=== PATIENT | female | born 1935 | race Caucasian/White ===

== ENCOUNTER 2021-10-10 12:31 | Emergency (ER) | payer MEDICARE, MEDICAID ==
[~2021-10-10] VITALS: Ht 152.4 cm; Wt 67.1 kg
[2021-10-10 12:34] VITALS: BP 124/81
--- NOTE | 2021-10-10 12:41 | NUR ---
PT AMBULATED TO BED 09.
--- NOTE | 2021-10-10 12:59 | NUR ---
PATIENT TAKEN TO CT VIA [facility]
--- NOTE | 2021-10-10 13:20 | NUR ---
PATIENT RETURNED FROM CT
--- NOTE | 2021-10-10 13:29 | NUR ---
PATIENT PLACED ON BED GRIMES FOR URINE COLLECTION
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
[2021-10-10] MEDS ORDERED: CIPR500T4 PO (13:59)
[2021-10-10] MEDS ORDERED: ONDA8TAB87 PO (13:59)
[2021-10-10] MEDS ORDERED: IBUP-2213 PO (13:59)
[2021-10-10] MEDS ORDERED: ACET-8386 PO (14:05)
[2021-10-10 14:23] VITALS: BP 124/81
--- NOTE | 2021-10-10 14:23 | NUR ---
Patient discharged with v/s stable. Written and verbal after care instructions ABOUT HEAD INJURY AND URINARY TRACT INFECTION given and explained. Patient alert, oriented and verbalized understanding of instructions. Wheel Chair Assisted with to car. All questions addressed prior to discharge. ID band removed. Patient advised to follow up with PMD. Rx of NORCO 5-325, KEFLEX, IBUPROFEN AND ZOFRAN given. Patient educated on indication of medication including possible reaction and side effects. Opportunity to ask questions provided and answered.
== END 2021-10-10 14:23 | disposition home or self-care (01) ==
LOC: MED 12:31
DX: S09.90XA Unspecified injury of head, initial encounter (principal); N39.0 Urinary tract infection, site not specified; F03.90 Unspecified dementia, unspecified severity, without behavioral disturbance, psychotic disturbance, mood disturbance, and anxiety; E11.9 Type 2 diabetes mellitus without complications; I10 Essential (primary) hypertension; Z90.710 Acquired absence of both cervix and uterus; Z79.4 Long term (current) use of insulin; Z90.13 Acquired absence of bilateral breasts and nipples; Z86.73 Personal history of transient ischemic attack (TIA), and cerebral infarction without residual deficits; W18.30XA Fall on same level, unspecified, initial encounter; Y93.89 Activity, other specified; Y92.89 Other specified places as the place of occurrence of the external cause; Y99.8 Other external cause status
CPT/HCPCS: 70450; 72125; 81002; 99284